=== PATIENT | male | born 1975 | race Caucasian/White ===

== ENCOUNTER 2024-07-04 08:37 | Emergency (ER) | payer OTHER, SELFPAY ==
[2024-07-04 08:48] VITALS: PULSE 88; RESP 22; O2SAT 93
[2024-07-04 08:53] VITALS: BP 134/85; PULSE 89; RESP 18; TEMP 36.9; O2SAT 93
[2024-07-04 08:55] VITALS: O2SAT 93
--- NOTE | 2024-07-04 09:28 | ED.ASTHMA ---
HPI - Asthma General Chief Complaint: Asthma Stated Complaint: SOB,asthma Time Seen by Provider: 07/04/24 09:28 Source: patient, RN notes reviewed and old records reviewed Mode of arrival: ambulatory Limitations: no limitations and other (paranoid) History of Present Illness HPI Narrative: Patient arrives complaining of ?asthma attack?. He reports that symptoms began this morning with wheezing. He is able to speak in complete sentences, no stridor noted. Patient reports that he has not been able to use his albuterol inhaler, because somebody is draining it during the night. He further reports that he believes his symptoms are result of his ?[place] family trying to kill him? and that this has been going on for several years. He reports that he is ?as safe as I ever am? Related Data Home Medications Medication Instructions Recorded Confirmed albuterol sulfate 90 mcg/actuation 2 inh inhalation QID PRN Wheezing 07/04/24 07/04/24 aerosol inhaler Allergies Allergy/AdvReac Type Severity Reaction Status Date / Time No Known Allergies Allergy Verified 07/04/24 09:28 Review of Systems Review of Systems: All systems reviewed & are unremarkable except as noted in HPI and below Constitutional: Constitutional: Reports no additional constitutional complaints ENT: Reports system reviewed and no additional complaints, except as documented Cardiovascular: Cardiovascular: Reports as per HPI and Reports no additional cardiovascular complaints Respiratory: Respiratory: Reports as per HPI and Reports no additional respiratory complaints Gastrointestinal: Gastrointestinal: Reports no additional gastrointestinal complaints PMFSH Comments At the time of my signature, I reviewed and agree with the nursing past medical, surgical, social, and family history. There is no relevant family history pertinent to the patient complaint. Exam Const: General: cooperative, no acute distress, alert and awake Orientation/consciousness: oriented to person, oriented to place and oriented to time Limitations: behavioral limitations (Patient very paranoid) Other: Denies suicidal and homicidal ideation HENMT: Head: normal to inspection Mouth: Yes oropharynx normal and Yes moist mucous membranes Throat: posterior oropharynx normal Resp: Effort & Inspection: normal respiratory effort and able to speak in complete sentences Auscultation: clear to auscultation bilaterally, no crackles, no rales, no rhonchi and wheezes expiratory wheezes and throughout Cardio: Palpation: normal PMI Rate: regular rate Rhythm: regular rhythm Heart sounds: S1 normal heart sound present and S2 normal heart sound present Neuro: General: oriented to person, oriented to place and oriented to time Cranial nerves: Yes CN's II-XII intact bilaterally Psych: Appearance: grossly normal Thought process: Normal thought process present Insight: Good insight present (Psych) Judgement: Good judgement present (Psych) Course Course Emergency Course: Lung sounds much improved after prednisone and neb treatment. Patient admits that he feels much better. Discharged home Level of Care: Express Care Visit Vital Signs Vital signs: Vital Signs Temperature 98.4 F 07/04/24 08:53 Pulse Rate 89 07/04/24 08:53 Respiratory Rate 18 07/04/24 08:53 Blood Pressure 134/85 07/04/24 08:53 Pulse Oximetry 93 07/04/24 08:53 Oxygen Delivery Room Air 07/04/24 08:53 Temperature 98.4 F 07/04/24 08:53 Pulse Rate 89 07/04/24 08:53 Respiratory Rate 18 07/04/24 08:53 Blood Pressure 134/85 07/04/24 08:53 Pulse Oximetry 93 07/04/24 08:53 Oxygen Delivery Room Air 07/04/24 08:53 Reviewed Discharge Plan Discharge Clinical Impression: Asthma with acute exacerbation Qualifiers: Asthma severity: unspecified severity Asthma persistence: unspecified Qualified Code(s): J45.901 - Unspecified asthma with (acute) exacerbation Patient Disposition: Home,
[2024-07-04] MEDS: predniSONE 20 MG TABLET 60 MG PO (09:54)
[2024-07-04] MEDS: IPRATROPIUM 0.5 MG/ALBUTEROL SULFATE 2.5 MG AMPUL.NEB 3 ML INHALATION (09:54)
[2024-07-04 09:58] VITALS: PULSE 89; RESP 18; O2SAT 93
[2024-07-04 10:27] VITALS: BP 123/75; PULSE 69; O2SAT 95
== END 2024-07-04 10:40 | disposition home or self-care (01) ==
PROVIDERS: Emergency Provider Nurse Practitioner Family
DX: J45.901 Unspecified asthma with (acute) exacerbation (principal)
CPT/HCPCS: 94640; 99213; G0463; J7512

== ENCOUNTER 2024-08-11 14:46 | Emergency (ER) | payer OTHER, SELFPAY ==
[2024-08-11 14:54] VITALS: BP 135/82; PULSE 85; RESP 20; TEMP 36.8; O2SAT 96
--- NOTE | 2024-08-11 15:06 | ED.URI ---
HPI - URI/Sore Throat General Chief Complaint: Upper Respiratory Infection Stated Complaint: SOB/Ears Irritation Time Seen by Provider: 08/11/24 15:06 Source: patient Mode of arrival: ambulatory Limitations: no limitations History of Present Illness HPI Narrative: Siva is a 48-year-old male patient presenting to the clinic today with complaints of shortness of breath, nasal congestion, bilateral ear irritation, and cough. He reports that the cough is nonproductive. Has been using his albuterol inhaler with minimal relief. States his symptoms started this morning when he woke up. Denies any fever, chills, or body aches. MD elicited complaint: sore throat and nasal congestion Related Data Home Medications Medication Instructions Recorded Confirmed albuterol sulfate 90 mcg/actuation 2 inh inhalation QID PRN Wheezing 07/04/24 08/11/24 aerosol inhaler Allergies Allergy/AdvReac Type Severity Reaction Status Date / Time No Known Allergies Allergy Verified 08/11/24 14:48 Review of Systems Review of Systems: Pertinent positives per HPI. Patient denies any fever, chills, rash, headache, visual changes, dizziness, chest pain, palpitations, nausea, vomiting, diarrhea, constipation, abdominal pain, or any urinary issues. PMFSH Comments At the time of my signature, I reviewed and agree with the nursing past medical, surgical, social, and family history. There is no relevant family history pertinent to the patient complaint. Exam Narrative: General: Well-developed, well nourished, in no apparent distress Head: Normocephalic, atraumatic Eyes: Pupils equally round and reactive to light bilaterally, EOM intact, sclera and conjunctive clear, no discharge, lids normal Ears: TMs intact and clear, ear canals clear, no drainage, grossly hearing normal. Nose: Nares patent, no discharge, no inflammation, no sinus tenderness. Mouth: Oral pharynx without lesions or masses, good dentition, MMM. Neck: Supple, trachea midline, no enlargement of anterior or posterior cervical nodes, no thyroid masses or goiter palpable. Cardio: Regular rate and rhythm, s1 and s2 normal, no murmur appreciated. Resp: Clear to auscultation bilaterally, no rhonchi, rales, wheezing or rubs Course Course Emergency Course: Portions of this record may have been created with voice recognition software. Level of Care: Express Care Visit Vital Signs Vital signs: Vital Signs Temperature 36.8 C 08/11/24 14:54 Pulse Rate 85 08/11/24 14:54 Respiratory Rate 20 08/11/24 14:54 Blood Pressure 135/82 08/11/24 14:54 Pulse Oximetry 96 08/11/24 14:54 Oxygen Delivery Room Air 08/11/24 14:54 Temperature 36.8 C 08/11/24 14:54 Pulse Rate 85 08/11/24 14:54 Respiratory Rate 20 08/11/24 14:54 Blood Pressure 135/82 08/11/24 14:54 Pulse Oximetry 96 08/11/24 14:54 Oxygen Delivery Room Air 08/11/24 14:54 Vital signs reviewed MDM - URI/Sore Throat MDM Narrative Medical decision making narrative: At the time of visit patient is resting comfortably on the exam table. Patient appears to be nontoxic. Medications: DuoNeb hand-held neb treatment was given in the clinic today. Plan: I suspect patient has bronchitis. Prescription for a Medrol Dosepak and albuterol refill was sent to the pharmacy. Supportive measures were discussed with the patient and they voiced understanding discharge instructions and agrees to treatment plan. Return precautions reviewed Differential Diagnosis Differential diagnosis: Likely upper respiratory infection, otitis media, sinusitis, viral infection, bronchitis, influenza, pharyngitis and other (COVID) Discharge Plan Discharge Clinical Impression: Bronchitis Patient Disposition: Home, Self-Care Condition: Stable Instructions: Antibiotic Form, Acute Bronchitis (ED) Additional Instructions: Take prescription medications only as prescribed-albuterol and Medrol Dos
[2024-08-11] MEDS: IPRATROPIUM 0.5 MG/ALBUTEROL SULFATE 2.5 MG AMPUL.NEB 3 ML INHALATION (15:17)
== END 2024-08-11 15:40 | disposition home or self-care (01) ==
PROVIDERS: Emergency Provider Nurse Practitioner Family
DX: J40 Bronchitis, not specified as acute or chronic (principal)
CPT/HCPCS: 94640; 99213; G0463

== ENCOUNTER 2024-09-04 14:02 | Emergency (ER) | payer OTHER, SELFPAY ==
[2024-09-04 14:12] VITALS: BP 123/84; PULSE 87; RESP 24; TEMP 37; O2SAT 98
--- NOTE | 2024-09-04 14:20 | ED_ITS ---
HPI - General Adult General Chief complaint: Upper Respiratory Infection Stated complaint: SOB/Sinus/Abdominal Pain Time Seen by Provider: 09/04/24 14:20 Source: patient, RN notes reviewed and old records reviewed Mode of arrival: ambulatory Limitations: no limitations History of Present Illness HPI narrative: 48-year-old presents to the [facility] with 3 day history of drainage, cough, wheezing. Patient reports that for the last urine half he has had intermittent respiratory issues. Also states he has had projectile diarrhea almost every night. [facility] States that he normally uses a [facility] or urgent care for his needs. Patient denies any current abdominal pain but states he does have several days. Discussed with him that we cannot do an abdominal workup that if he is having abdominal pain he needs to be evaluated in the emergency room or the has chronic diarrhea again workup in the emergency room. Discussed today he is having cough, wheezing and sinus drainage. Reports that he does take [id number] medication, unsure of what he takes. Patient does not have a primary care provider, a list of [facility] has been given to him. Encourage patient to seek further treatment for his chronic needs. Patient denies any significant past medical or surgical history. Denies any h istory of asthma/ COPD. Related Data Allergies Allergy/AdvReac Type Severity Reaction Status Date / Time No Known Allergies Allergy Verified 09/04/24 14:32 Review of Systems Review of Systems: All systems reviewed & are unremarkable except as noted in HPI and below Constitutional: Constitutional: Reports no additional constitutional complaints ENT: Reports as per HPI Cardiovascular: Cardiovascular: Reports no additional cardiovascular complaints, Denies chest pain and Denies dyspnea Respiratory: Respiratory: Reports as per HPI, Reports chest congestion, Reports cough and Reports dyspnea Gastrointestinal: Gastrointestinal: Reports no additional gastrointestinal complaints, Denies abdominal pain, Denies nausea and Denies vomiting Musculoskeletal: Musculoskeletal: Reports no additional musculoskeletal complaints Integumentary/Breasts: Skin/Breast: Reports system reviewed and no additional complaints, except as docu PMFSH Comments At the time of my signature, I reviewed and agree with the nursing past medical, surgical, social, and family history. There is no relevant family history pertinent to the patient complaint. Exam Const: General: cooperative, healthy appearing, comfortable, no acute distress, well developed, alert and well nourished Nutritional Appearance: well nourished Orientation/consciousness: patient oriented x3 Limitations: no limitations HENMT: Head: normal to inspection Ears: hearing grossly normal bilaterally, external ears normal, TM's normal bilaterally, EAC's normal, mastoids normal and no periauricular adenopathy Face/Nose/Sinus: Normal external nose present, normal facial exam and face symmetric Face and sinus: normal facial exam and face symmetric Mouth: Yes Normal oral and palatal mucosa present, Yes lip normal and Yes tongue normal Throat: posterior oropharynx normal, uvula midline, postnasal drainage and no uvular edema Eyes: General: appearance normal, both eyes and all related structures Alignment and Position: alignment normal Periorbital: periorbital findings normal Neck: Neck: normal visual inspection, full ROM, no lymphadenopathy and no meningeal signs Chest: Chest palpation & inspection: normal inspection of the chest Resp: Effort & Inspection: normal respiratory effort and able to speak in complete sentences Auscultation: no crackles, no rales, no rhonchi and wheezes expiratory wheezes and throughout Cardio: Rate: regular rate Skin: General skin exam: normal color and no rashes or lesions noted Lesions: no lesions Rashes: no rashes Wounds: no wounds Neuro: General: patient oriented x3, gait normal, tone normal, moves all extremities and no meningeal signs Cognition (Neuro): normal cognition Speech: normal speech Gait exam (Neuro): Normal gait present Extrem: General: normal to inspection, full ROM, capillary refill normal and normal gait Psych: Appearance: grossly normal and well kempt Mental Status: mental status grossly normal Speech and movement: Normal speech and movement present and Clear speech present Affect: normal affect Attitude: cooperative Course Course Emergency Course: Patient given nebulizer treatment in clinic, wheezing completely cleared. Patient in no respiratory distress. Discussed outpatient treatment and stressed again the importance of having a primary care provider for proper care of his chronic needs Level of Care: Express Care Visit Vital Signs Vital signs: Vital Signs Temperature 98.6 F 09/04/24 14:12 Pulse Rate 87 09/04/24 14:12 Respiratory Rate 24 H 09/04/24 14:12 Blood Pressure 123/84 09/04/24 14:12 Pulse Oximetry 98 09/04/24 14:12 Oxygen Delivery Room Air 09/04/24 14:12 Temperature 98.6 F 09/04/24 14:12 Pulse Rate 87 09/04/24 14:12 Respiratory Rate 24 H 09/04/24 14:12 Blood Pressure 123/84 09/04/24 14:12 Pulse Oximetry 98 09/04/24 14:12 Oxygen Delivery Room Air 09/04/24 14:12 Reviewed Medical Decision Making MDM Narrative Medical decision making narrative: Patient sitting comfortably in exam room. Nontoxic, vitals stable. Patient in no acute distress Patient presents for cough, congestion worsening over the last 3 days Nebulizer treatment given Symptoms improved Discussed signs and symptoms to go the emergency room which patient verbalized understanding Discharge instructions reviewed with patient, as well as provided in writing per nursing staff. The instructions also include specific and strict return/GO TO THE ER as well as f/u information. All questions have been answered, and the patient deny any further questions with discharge and discharge plan. Some parts of this dictation were generated by voice recognition software and may contain typographical and/or grammatical inaccuracies. Differential Diagnosis Differential Diagnosis: Bronchitis, asthma, Medical Records Medical records reviewed: Yes I reviewed the external patient's medical records. Vital Signs Vital Signs: Vital Signs Temperature 98.6 F 09/04/24 14:12 Pulse Rate 87 09/04/24 14:12 Respiratory Rate 24 H 09/04/24 14:12 Blood Pressure 123/84 09/04/24 14:12 Pulse Oximetry 98 09/04/24 14:12 Oxygen Delivery Room Air 09/04/24 14:12 Temperature 98.6 F 09/04/24 14:12 Pulse Rate 87 09/04/24 14:12 Respiratory Rate 24 H 09/04/24 14:12 Blood Pressure 123/84 09/04/24 14:12 Pulse Oximetry 98 09/04/24 14:12 Oxygen Delivery Room Air 09/04/24 14:12 Reviewed Lab Data Lab results reviewed: Yes I reviewed the patient's lab results. Labs: Reviewed Critical Care Time Critical Care Time Critical Care Time: No Discharge Plan Discharge Clinical Impression: Bronchitis Patient Disposition: Home, Self-Care Condition: Stable Instructions: Antibiotic Form, Acute Bronchitis (ED) Additional Instructions: -Alternate Tylenol and Motrin per package directions for fever or pain. -Antihistamine medication such as Benadryl at night and Zyrtec/Claritin/Lindsey during the day can help improve symptoms. -doing daily nasal irrigations can help relieve pressure your sinuses. Things like a Neti pot -Use Flonase twice a day for 5 days then daily to help reduce the inflammation and dry up your sinuses. -You can also use Sudafed or Mucinex. Be sure to drink plenty of water with these medications at least 8 ounces with every dose and it is important to drink 8 to 10 glasses of water per day. Water is a natural decongestant -Eat and drink things that are easy to swallow, like tea or soup, or popsicles. -Oral rinses such as: Salt water gargles and/or may use topical anesthetic (eg. Chloraseptic spray) or lozenges to relieve dryness or throat pain). -Frequent hand washing or hand paper goods machine set up operator is one of the best ways to prevent spread of infection. -Using a vaporizer or humidifier at night will also help thin secretions and help with coughing up phlegm. -Follow up with primary care provider. You have multiple chronic issues that need to be addressed by primary care provider a list for [facility] has been given to you. - For new or worsening symptoms go directly to the nearest ER Patient Language: Faroese Prescriptions: New albuterol sulfate 90 mcg/actuation HFA aerosol inhaler 2 puff inhalation QID PRN (Reason: shortness of breath or wheezing) Qty: 6.7 0RF methylprednisolone [Medrol (Manjinder)] 4 mg tablets,dose pack See Rx Instructions PO .COMPLEX Qty: 21 0RF Rx Instructions: orally per package directions No Action albuterol sulfate 90 mcg/actuation HFA aerosol inhaler 2 puff inhalation Q4-6H PRN (Reason: shortness of breath or wheezing) 30 Days Qty: 8.5 0RF Follow-up/Referrals: PHYSICIAN,[employer] [Primary Care Provider] - Stand Alone Forms: Work/School Release IP Time of Disposition: 15:17
[2024-09-04] MEDS: ALBUTEROL SULFATE NEB 2.5 MG/3 ML INH INHALATION (14:39)
[2024-09-04] MEDS: IPRATROPIUM BR 0.02% INH SOLN 0.5 MG/2.5 ML VIAL INHALATION (14:39)
== END 2024-09-04 15:20 | disposition home or self-care (01) ==
PROVIDERS: Emergency Provider Nurse Practitioner
DX: J40 Bronchitis, not specified as acute or chronic (principal)
CPT/HCPCS: 94640; 99213; G0463